=== PATIENT | female | born 1975 | race Caucasian/White ===

== ENCOUNTER → 2016-05-10 | Outpatient (CLI) | payer OTHER ==
--- NOTE | 2016-05-11 10:37 | KCIC ---
Examination: MRI left forefoot without contrast. 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 COMPARISON None available Technique: Multiplanar, multisequence MR imaging of the left forefoot were performed without contrast Findings: The alignment of the tarsometatarsal joints grossly appears unremarkable. The visualized Lisfranc ligament is intact. There is mild increased T2 signal identified in the proximal phalanx of the 2nd toe with increased signal identified in the region of the lateral collateral ligamentous complex of the 2nd metatarsophalangeal joint probably due to injury to the lateral collateral ligamentous complex. There is questionable mild medial subluxed appearance of the proximal phalanx of the 2nd toe at the level of metatarsophalangeal joint. No obvious acute fracture is identified. On series 12 image #23/22 there is a intermediate T1 signal identified in the plantar aspect just medial to the head of the 2nd metatarsal with corresponding from high T2 signal in this region is nonspecific could be of most probably soft tissue edema or less likely Sagastume's neuroma. IMPRESSION - Mild increased STIR signal/edema identified in the proximal phalanx of the 2nd toe with increased signal identified along the lateral collateral ligamentous complex of the 2nd toe at 2nd MTP joint, question injury to lateral ligamentous complex with questionable minimal medial subluxed appearance of the proximal phalanx in relation to the 2nd metatarsal. Other possibility is stress reactive change. - On series 12 image #23/22, there is a intermediate T1 signal identified in the plantar aspect just medial to the head of the 2nd metatarsal with corresponding from high T2 signal in this region is nonspecific could be of most probably soft tissue edema or less likely Sagastume's neuroma. Followup MRI with IV contrast can be considered. Electronically signed by: Matt Brink (May 11, 2016 10:35:28)
== END | disposition home or self-care (01) ==
LOC: KCIC MRI 16:41
PROVIDERS: ATTEND Podiatrist Foot & Ankle Surgery
DX: S92.322A Displaced fracture of second metatarsal bone, left foot, initial encounter for closed fracture (principal)
CPT/HCPCS: 73718

== ENCOUNTER → 2016-10-31 | Outpatient (CLI) | payer OTHER ==
--- NOTE | 2016-10-31 16:33 | RAD ---
DATE: 10/31/2016 EXAM: MAMMO ES SCREENING BILATERAL Bilateral digital screening mammography to include digital breast tomosynthesis (3D mammography) HISTORY: Screening study. COMPARISON: 06/07/2010 This study was interpreted with the benefit of Computerized Aided Detection (CAD). FINDINGS: Digital MLO and CC mammograms of both breasts were obtained. Additionally digital breast tomosynthesis (3D mammography) images of both breasts in the MLO and CC projections were performed. Comparison study is dated 06/07/2010. The breast parenchyma is composed of scattered fibroglandular densities which can obscure a lesion on mammography (breast density code B). No spiculated mass is seen. No malignant appearing calcification or area of architectural distortion is noted. Digital breast tomosynthesis images demonstrate no spiculated mass or malignant appearing calcification. Since the previous examination there has been no significant interval change. IMPRESSION: BI-RADS Category 1, negative. There is no mammographic evidence of malignancy. Routine yearly screening mammography is recommended for follow-up. BI-RADS CATEGORY: 1 NEGATIVE RECOMMENDED FOLLOW-UP: 12M 12 MONTH FOLLOW-UP PQRS compliance statement: Patient information was entered into a reminder system with a target due date 10/31/2016 for the next mammogram. Mammography is a sensitive method for finding small breast cancers, but it does not detect them all and is not a substitute for careful clinical examination. A negative mammogram does not negate a clinically suspicious finding and should not result in delay in biopsying a clinically suspicious abnormality. "Our facility is accredited by the [employer] Mammography [employer]."
== END | disposition home or self-care (01) ==
LOC: KCIC MAMMO 15:12
PROVIDERS: ATTEND Specialist
DX: Z12.31 Encounter for screening mammogram for malignant neoplasm of breast (principal)
CPT/HCPCS: 77063; G0202; 77067

== ENCOUNTER 2017-05-08 09:35 | Inpatient (IN) | payer OTHER ==
[2017-05-08 09:50] LABS: URINE HCG POC HCG NEGATIVE (Negative)
[2017-05-08 10:09] LABS: BILIRUBIN,URINE NEGATIVE (NEG); CLARITY,URINE CLEAR; COLOR,URINE YELLOW; GLUCOSE,URINE NEGATIVE (NEG); NITRITE,URINE NEGATIVE (NEG); PH,URINE 7.5; PROTEIN,URINE NEGATIVE (NEG-TRACE); UROBILINOGEN,URINE 0.2 mg/dL (0.2 mg/dL)
[2017-05-08 10:14] LABS: BACTERIA,URINE MODERATE /HPF (0-FEW); RBC,URINE OCC /HPF (0-2); SQUAMOUS EPITHELIAL CELL,UR MOD /LPF; WBC,URINE OCC /HPF (0-4)
[2017-05-08] MEDS: IV NORMAL SALINE 1000ML BAG 1,000 ML IV (10:14)
[2017-05-08] MEDS: fentaNYL PF VIAL 100 MCG/2 ML VIAL IV ×3 (10:22→22:01)
[2017-05-08 10:25] LABS: ADD MAN DIFF? YES; BASO % 0 % (0-3); EOS % 1 % (0-3); HEMATOCRIT 40.4 % (36.0-47.0); HEMOGLOBIN 13.7 g/dL (12.0-15.5); LYMPH # 0.3 x10^3/uL (1.0-4.8); LYMPH % 6 % (24-48); MEAN CORPUSCULAR HEMOGLOBIN 30 pg (25-35); MEAN CORPUSCULAR HGB CONC 34 g/dL (31-37); MEAN CORPUSCULAR VOLUME 90 fL (79-100); MONO # 0.3 x10^3/uL (0.0-1.1); MONO % 6 % (0-9); NEUT # 3.8 x10^3uL (1.8-7.7); NEUT % 87 % (31-73); PLATELET COUNT 177 x10^3/uL (140-400); RED CELL DISTRIBUTION WIDTH 13.7 % (11.5-14.5); WHITE BLOOD COUNT 4.4 x10^3/uL (4.0-11.0)
[2017-05-08 10:44] LABS: ANION GAP 12 (6-14); BLOOD UREA NITROGEN 9 mg/dL (7-20); BUN/CREATININE RATIO 11 (6-20); CALCIUM 8.3 mg/dL (8.5-10.1); CARBON DIOXIDE 26 mmol/L (21-32); CHLORIDE 101 mmol/L (98-107); CREATININE 0.8 mg/dL (0.6-1.0); GFR 78.7; GLUCOSE 94 mg/dL (70-99); POTASSIUM 3.7 mmol/L (3.5-5.1); SODIUM 139 mmol/L (136-145)
[2017-05-08 10:50] LABS: ALBUMIN 3.6 g/dL (3.4-5.0); ALBUMIN/GLOBULIN RATIO 1.1 (1.0-1.7); ALK PHOS 59 U/L (46-116); ALT (SGPT) 25 U/L (14-59); AST (SGOT) 14 U/L (15-37); TOTAL BILIRUBIN 0.5 mg/dL (0.2-1.0); TOTAL PROTEIN 6.9 g/dL (6.4-8.2)
[2017-05-08 13:15] LABS: % LYMPHS 6 % (24-48); % MONOS 10 % (0-10); % SEGS 84 % (35-66); PLT ESTIMATE ADEQUATE (ADEQUATE)
[2017-05-08] MEDS: ONDANSETRON PF 4 MG/2 ML VIAL. IV ×2 (17:25→22:02)
[2017-05-08] MEDS: HYDROmorphone 2 MG/ML VIAL IV (17:25)
[2017-05-08 19:08] LABS: INFLUENZA A PATIENT NEGATIVE (NEGATIVE); INFLUENZA B PATIENT NEGATIVE (NEGATIVE); OBC FLU VALID
[2017-05-08] MEDS: ENOXAPARIN 40 MG/0.4 ML SYRINGE. SQ (21:00)
[2017-05-09 05:27] LABS: ADD MAN DIFF? NO
[2017-05-09 05:34] LABS: BASO % 0 % (0-3); EOS % 0 % (0-3); HEMATOCRIT 35.9 % (36.0-47.0); HEMOGLOBIN 12.4 g/dL (12.0-15.5); LYMPH # 0.9 x10^3/uL (1.0-4.8); LYMPH % 30 % (24-48); MEAN CORPUSCULAR HEMOGLOBIN 31 pg (25-35); MEAN CORPUSCULAR HGB CONC 35 g/dL (31-37); MEAN CORPUSCULAR VOLUME 90 fL (79-100); MONO # 0.5 x10^3/uL (0.0-1.1); MONO % 17 % (0-9); NEUT # 1.6 x10^3uL (1.8-7.7); NEUT % 52 % (31-73); PLATELET COUNT 167 x10^3/uL (140-400); RED BLOOD COUNT 4.01 x10^6/uL (3.50-5.40); RED CELL DISTRIBUTION WIDTH 13.5 % (11.5-14.5); WHITE BLOOD COUNT 3.1 x10^3/uL (4.0-11.0)
[2017-05-09 06:02] LABS: ALBUMIN/GLOBULIN RATIO 0.9 (1.0-1.7); ALK PHOS 53 U/L (46-116); ALT (SGPT) 19 U/L (14-59); ANION GAP 9 (6-14); AST (SGOT) 12 U/L (15-37); BLOOD UREA NITROGEN 9 mg/dL (7-20); BUN/CREATININE RATIO 13 (6-20); CARBON DIOXIDE 25 mmol/L (21-32); CHLORIDE 103 mmol/L (98-107); CREATININE 0.7 mg/dL (0.6-1.0); GFR 91.8; GLUCOSE 81 mg/dL (70-99); POTASSIUM 3.5 mmol/L (3.5-5.1); SODIUM 137 mmol/L (136-145); TOTAL BILIRUBIN 0.5 mg/dL (0.2-1.0); TOTAL PROTEIN 6.3 g/dL (6.4-8.2)
[2017-05-09] MEDS: ONDANSETRON PF 4 MG/2 ML VIAL. IV ×2 (06:29→12:32)
[2017-05-09] MEDS: fentaNYL PF VIAL 100 MCG/2 ML VIAL IV ×2 (06:29→12:32)
[2017-05-09 08:57] LABS: SEDIMENTATION RATE 15 (0-25)
[2017-05-09] MEDS ORDERED: fentaNYL PF VIAL 100 MCG/2 ML VIAL IV (13:45)
[2017-05-09] MEDS ORDERED: hydrALAZINE 20 MG/ML VIAL. IVP (13:45)
[2017-05-09] MEDS ORDERED: DOCUSATE SODIUM 100 MG CAPSULE. PO (13:45)
[2017-05-09] MEDS ORDERED: ONDANSETRON PF 4 MG/2 ML VIAL. IV (13:45)
[2017-05-09] MEDS: ENOXAPARIN 40 MG/0.4 ML SYRINGE. SQ (21:00)
[2017-05-09] MEDS: ACETAMINOPHEN 325 MG TABLET. PO (21:15)
[2017-05-10 07:20] LABS: ADD MAN DIFF? NO
[2017-05-10 07:39] LABS: BASO % 0 % (0-3); EOS % 2 % (0-3); HEMATOCRIT 37.7 % (36.0-47.0); HEMOGLOBIN 12.9 g/dL (12.0-15.5); LYMPH # 1.2 x10^3/uL (1.0-4.8); LYMPH % 40 % (24-48); MEAN CORPUSCULAR HEMOGLOBIN 31 pg (25-35); MEAN CORPUSCULAR HGB CONC 34 g/dL (31-37); MEAN CORPUSCULAR VOLUME 90 fL (79-100); MONO # 0.4 x10^3/uL (0.0-1.1); MONO % 12 % (0-9); NEUT # 1.4 x10^3uL (1.8-7.7); NEUT % 46 % (31-73); PLATELET COUNT 178 x10^3/uL (140-400); RED BLOOD COUNT 4.19 x10^6/uL (3.50-5.40); RED CELL DISTRIBUTION WIDTH 13.3 % (11.5-14.5)
== END 2017-05-10 13:15 | disposition home or self-care (01) | DRG 392 ==
LOC: ER 09:35 → 4 NORTH 13:45
DX: K52.9 Noninfective gastroenteritis and colitis, unspecified (principal); E28.2 Polycystic ovarian syndrome; K37 Unspecified appendicitis; E66.9 Obesity, unspecified; Z80.9 Family history of malignant neoplasm, unspecified; Z83.71 Family history of colonic polyps; Z90.49 Acquired absence of other specified parts of digestive tract; Z88.8 Allergy status to other drugs, medicaments and biological substances; Z68.33 Body mass index [BMI] 33.0-33.9, adult
CPT/HCPCS: 36415; 74176; 76705; 76830; 76856; 80053; 81001; 81025; 85007; 85025; 85651; 87086; 87804; 87804-59; 96361; 96374; 96376; 99285; 99285-25; J1170; J2405; J3010; J7030

== ENCOUNTER → 2018-03-19 | Outpatient (CLI) | payer OTHER ==
[2017-05-10 11:00] VITALS: BP 105/56
--- NOTE | 2018-03-20 10:39 | KCIC ---
Bilateral digital screening mammograms with 3-D tomosynthesis: Reason for examination: Routine screening. Comparison is made to previous studies dated 10/31/2016 and 06/07/2010. Bilateral mammograms in CC and oblique projections were obtained with 2-D imaging and 3-D tomosynthesis imaging on a Siemens Inspiration unit and reviewed on the workstation. Interpretation was made with the benefit of CAD. The skin and nipples show no abnormalities. No abnormal axillary lymph nodes are seen. The breast parenchyma shows scattered fatty and fibroglandular density. (Breast density: Category B.) There are no dominant masses, suspicious calcifications or architectural distortion. Impression: No evidence of malignancy. Recommend routine screening. BI-RAD Category 1: Negative. "Our facility is accredited by the [employer] Mammography [employer]." This patient's information has been entered into a reminder system for the patient to be notified with the results of her examination and a target date for the next mammogram. Electronically signed by: Lori Schaefer MD (03/20/2018 10:36 AM) [id number]
== END | disposition home or self-care (01) ==
LOC: KCIC MAMMO 14:11
PROVIDERS: ATTEND Specialist
DX: Z12.31 Encounter for screening mammogram for malignant neoplasm of breast (principal)
CPT/HCPCS: 77063; 77067

== ENCOUNTER → 2019-09-28 | Outpatient (CLI) | payer OTHER ==
[2017-05-10 11:00] VITALS: BP 105/56
--- NOTE | 2019-09-28 16:26 | KCIC ---
Bilateral digital screening mammograms with 3-D tomosynthesis: Reason for examination: Routine screening. Comparison is made to previous studies dated back to 06/07/2010. Bilateral mammograms in CC and oblique projections were obtained with 2-D imaging and 3-D tomosynthesis imaging on a Siemens Inspiration unit and reviewed on the workstation. Interpretation was made with the benefit of CAD. The skin and nipples show no abnormalities. No abnormal axillary lymph nodes are seen. The breast parenchyma shows scattered fatty and fibroglandular density. (Breast density: Category B.) There appears to be a faint nodular density at the 10:00 C positions of the right breast and appearing to measure approximately 1.2 cm in greatest dimension. There also appears to be a small nodule measuring approximately 8 mm in greatest dimension located approximately 5.8 cm posterior to the 12:00 position in the cc view only. Further evaluation of these findings with ultrasound is recommended. There are no other dominant masses, suspicious calcifications or architectural distortion. Impression: Small nodular densities suggested in the 10:00 position posteriorly in the right breast and in the retroareolar 12:00 position of the left breast. Recommend further evaluation with ultrasound. BI-RADS Category 0: Incomplete. Needs additional imaging evaluation "Our facility is accredited by the [employer] Mammography [employer]." This patient's information has been entered into a reminder system for the patient to be notified with the results of her examination and a target date for the next mammogram. Electronically signed by: Lori Schaefer MD (09/28/2019 4:23 PM) [id number]
== END | disposition home or self-care (01) ==
LOC: KCIC MAMMO 12:45
PROVIDERS: ATTEND Specialist
DX: Z12.31 Encounter for screening mammogram for malignant neoplasm of breast (principal)
CPT/HCPCS: 77063; 77067